=== PATIENT | male | born 1980 | race Caucasian/White ===

== ENCOUNTER 2021-11-15 08:09 | Emergency (ER) | payer BC, OTHER | END 2021-11-15 09:54 | disposition home or self-care (01) | LOC: DL.ED 08:09 | DX: S93.502A Unspecified sprain of left great toe, initial encounter (principal); F17.210 Nicotine dependence, cigarettes, uncomplicated; X58.XXXA Exposure to other specified factors, initial encounter; Y99.0 Civilian activity done for income or pay | CPT/HCPCS: 73630-LT; 73660-TA; 99282; 99283 ==

== ENCOUNTER 2023-07-29 11:19 | Emergency (ER) | payer OTHER ==
[2023-07-29 11:57] LABS: BASOPHILS PERCENT AUTO 0.2 % (0.0-1.0); EOSINOPHILS PERCENT AUTO 0.7 % (1.0-3.0); HEMATOCRIT 47.9 % (40.0-54.0); HEMOGLOBIN 17.1 g/dL (14.0-18.0); LYMPHOCYTES PERCENT AUTO 15.6 % (20.5-50.1); MEAN CORPUSCULAR HGB CONC 35.7 g/dL (33.0-35.0); MEAN CORPUSCULAR VOLUME 86.9 fL (80-100); MONOCYTES PERCENT AUTO 7.4 % (2-8); NEUTROPHILS PERCENT AUTO 76.1 % (42.2-75.2); PLATELET COUNT,PLT 251 10^3/uL (150-450); RED BLOOD CELL COUNT 5.51 10^6/uL (4.6-6.2); WHITE BLOOD CELL COUNT,WBC 14.3 10^3/uL (5.0-10.0)
[2023-07-29] MEDS: Morphine 4 MG/ML Syringe IVPUSH ONE (11:59)
[2023-07-29] MEDS: Diphtheria,Pertussis(Acell),Tetanus Vaccine 0.5 ML Syringe IM ONE (11:59)
[2023-07-29] MEDS: Sodium Chloride 0.9% 1,000 ML IV ONE (11:59)
[2023-07-29 12:17] LABS: A/G RATIO 1.1; ALBUMIN 4.1 g/dL (3.4-5.0); BILIRUBIN TOTAL 0.4 mg/dL (0.2-1.0); BUN/CREATININE RATIO 18.3 (No establ ref range); CALCIUM 9.3 mg/dL (8.5-10.1); CREATININE 1.04 mg/dL (0.70-1.30); EST CRCL DRUG DOSING (CG) 95.54 mL/min; MAGNESIUM 2.2 mg/dL (1.8-2.4); PROTEIN TOTAL,TP 7.7 g/dL (6.4-8.2)
[2023-07-29] MEDS: Iopamidol 612 MG/ML 100 ML Bottle IVPUSH ONE (12:28)
[2023-07-29 13:30] LABS: APPEARANCE,URINE CLEAR (CLEAR); BILIRUBIN,URINE NEGATIVE (NEGATIVE); COLOR,URINE YELLOW (YELLOW); GLUCOSE,URINE NEGATIVE (NEGATIVE); KETONES,URINE NEGATIVE (NEGATIVE); LEUKOCYTE ESTERASE,URINE NEGATIVE (NEGATIVE); NITRITE,URINE NEGATIVE (NEGATIVE); OCCULT BLOOD,URINE TRACE-INTACT (NEGATIVE); PROTEIN,URINE NEGATIVE (NEGATIVE); UROBILINOGEN,URINE 0.2 mg/dL (0.2-1.0)
[2023-07-29 13:39] LABS: BACTERIA,URINE RARE /HPF (0-FEW/HPF); EPITHELIAL CELLS,URINE RARE /HPF (NOT SEEN); RBC,URINE 0-5 /HPF (0-5); WBC,URINE 0-5 /HPF (0-5/HPF)
== END 2023-07-29 14:09 | disposition home or self-care (01) ==
LOC: DL.ED 11:19
DX: S06.0X0A Concussion without loss of consciousness, initial encounter (principal); S01.311A Laceration without foreign body of right ear, initial encounter; S80.811A Abrasion, right lower leg, initial encounter; Z23 Encounter for immunization; Y30.XXXA Falling, jumping or pushed from a high place, undetermined intent, initial encounter
CPT/HCPCS: 36415; 70450; 71045; 72125; 73502; 73562; 73590; 74177; 80053; 81001; 83735; 85025; 90471; 90715; 96361; 96374; 99284; J2270; J7030; Q9967